=== PATIENT | female | born 1995 | race African-American/Black ===

== ENCOUNTER 2016-07-24 04:46 | Inpatient (IN) | payer MEDICAID ==
[~2016-07-24 04:46] MED LIST: COLACE100 MG PO; MOTRIN800 MG PO; PERCOCET 5/3251 TA1 PO; PRENATAL COMPLE1 TAB
[2016-07-24] MEDS ORDERED: FERROUS SULFAT325 MG (05:27)
[2016-07-24] MEDS ORDERED: PRENATAL COMPLE1 TAB PO (05:27)
[2016-07-24] MEDS ORDERED: [UNRECOGNIZED DRUG - REMARK] (05:29)
[2016-07-24 06:26] LABS: HEMATOCRIT 35.8 % (36.0-48.0); HEMOGLOBIN 11.7 g/dL (12-16); MCH 26.5 pg (26.0-34.0); MCHC 32.7 g/dL (31.0-37.0); MEAN PLATELET VOLUME 11.7 fL (7.4-10.4); RBC 4.42 10x6/uL (4.00-5.40); RDW 14.6 % (11.5-14.5); WBC 8.3 10x3/uL (4.8-10.8)
[2016-07-24 07:07] LABS: APPEARANCE HAZY (CLEAR); COLOR YELLOW (YELLOW); SPECIFIC GRAVITY 1.015 (1.005-1.020)
[2016-07-24 07:11] LABS: BACTERIA MODERATE /hpf (NONE SEEN); BILIRUBIN NEGATIVE (NEGATIVE); GLUCOSE NEGATIVE (NEGATIVE); KETONE NEGATIVE (NEGATIVE); LEUKOCYTE ESTERASE 2+ (NEGATIVE); NITRITE NEGATIVE (NEGATIVE); PROTEIN NEGATIVE (NEGATIVE); RED CELLS - URINE 0-5 /hpf (0-5); UROBILINOGEN NORMAL (NORMAL); WHITE CELLS - URINE >50 /hpf (0-5)
[2016-07-25 06:13] LABS: RAPID PLASMA REAGIN Non Reactive (Non Reactive)
[2016-07-25 11:00] LABS: HEMATOCRIT 31.7 % (36.0-48.0); HEMOGLOBIN 10.5 g/dL (12-16); MCH 26.6 pg (26.0-34.0); MCHC 33.1 g/dL (31.0-37.0); MCV 80.3 fL (80.0-100.0); MEAN PLATELET VOLUME 11.6 fL (7.4-10.4); RBC 3.95 10x6/uL (4.00-5.40); RDW 14.7 % (11.5-14.5)
[2016-07-25 11:02] LABS: WBC 11.8 10x3/uL (4.8-10.8)
[2016-07-26] MEDS ORDERED: IBUPROFEN600 MG PO (11:37)
== END 2016-07-26 12:45 | disposition home or self-care (01) | DRG 775 ==
LOC: D.LD 04:46
PROVIDERS: Psychiatry & Neurology Psychiatry; ADMIT Obstetrics & Gynecology
PROC: 10E0XZZ Delivery of Products of Conception, External Approach (ICD-10-PCS; principal; 2016-07-24)
PROC: 0HQ9XZZ Repair Perineum Skin, External Approach (ICD-10-PCS; 2016-07-24)
DX: O99.824 Streptococcus B carrier state complicating childbirth (principal); Z3A.39 39 weeks gestation of pregnancy; Z37.0 Single live birth; O70.0 First degree perineal laceration during delivery

== ENCOUNTER 2016-09-12 21:34 | Emergency (ER) | payer MEDICAID ==
[2016-07-24 12:50] VITALS: BMI 24.5
[~2016-09-12 21:34] MED LIST changes: +FERROUS SULFAT325 MG; +IBUPROFEN600 MG PO; +PRENATAL COMPLE1 TAB PO; +[UNRECOGNIZED DRUG - REMARK]
== END 2016-09-12 23:09 | disposition home or self-care (01) ==
LOC: D.ER 21:34
DX: K08.89 Other specified disorders of teeth and supporting structures (principal)

== ENCOUNTER 2017-01-11 13:54 | Emergency (ER) | payer MEDICAID ==
[2016-07-24 12:50] VITALS: BMI 24.5
== END 2017-01-11 15:42 | disposition home or self-care (01) ==
LOC: D.ER 13:54
DX: L03.031 Cellulitis of right toe (principal)

== ENCOUNTER 2018-03-20 16:52 | Emergency (ER) | payer SELFPAY ==
[~2018-03-20] VITALS: Ht 163.8 cm; Wt 66.7 kg
[2018-03-20 16:55] VITALS: BP 138/86; Ht 163.8 cm; Wt 66.7 kg
[2018-03-20] MEDS ORDERED: ZOVIRAX800 MG PO (17:35)
[2018-03-20] MEDS ORDERED: GABAPENTIN100 MG PO (17:35)
[2018-03-20] MEDS ORDERED: MEDROL DOSE PACK4 MG PO (17:35)
== END 2018-03-20 18:12 | disposition home or self-care (01) ==
LOC: D.ER 16:52
DX: B02.9 Zoster without complications (principal)

== ENCOUNTER → 2020-05-24 14:48 | Outpatient (CLI) | payer OTHER ==
[2018-03-20 16:55] VITALS: BMI 24.8
[~2020-05-24 14:48] MED LIST changes: +GABAPENTIN100 MG PO; +MEDROL DOSE PACK4 MG PO; +ZOVIRAX800 MG PO
== END | disposition home or self-care (01) ==
LOC: D.MRI 14:48
PROVIDERS: ATTEND Family Medicine
DX: M54.5 Low back pain (principal)

== ENCOUNTER 2020-07-28 15:00 | Emergency (ER) | payer MEDICAID ==
[~2020-07-28] VITALS: Ht 163.8 cm; Wt 76.7 kg
[2020-07-28 15:04] VITALS: BP 130/78; Ht 163.8 cm; Wt 76.7 kg
[2020-07-28] MEDS ORDERED: ZOFRAN ODT4 MG/UDTAB PO (15:30)
== END 2020-07-28 16:14 | disposition home or self-care (01) ==
LOC: D.ER 15:00
DX: B34.9 Viral infection, unspecified (principal); R10.9 Unspecified abdominal pain; R51.9 Headache, unspecified; R11.2 Nausea with vomiting, unspecified; R19.7 Diarrhea, unspecified